=== PATIENT | male | born 1980 | race Caucasian/White ===

== ENCOUNTER 2018-10-27 10:35 | Emergency (ER) | payer OTHER ==
[~2018-10-27] VITALS: Ht 167.6 cm; Wt 74.4 kg
[~2018-10-27 10:35] MED LIST: HYDROCHLOROTHIA25 MG PO; LASIX40 MG PO; PRE20 PO; PREDNISONE20 MG PO; SIMVASTATIN10 M1 PO; ZES10 PO
[2018-10-27 10:50] VITALS: Ht 167.6 cm; Wt 74.4 kg
[2018-10-27 13:02] VITALS: BP 130/85
== END 2018-10-27 13:02 | disposition home or self-care (01) ==
LOC: ED 10:35
DX: T15.82XA Foreign body in other and multiple parts of external eye, left eye, initial encounter (principal); Y92.89 Other specified places as the place of occurrence of the external cause
CPT/HCPCS: 90715

== ENCOUNTER 2019-11-08 18:43 | Emergency (ER) | payer MEDICAID ==
[~2019-11-08] VITALS: Ht 157.5 cm; Wt 81.2 kg
[2019-11-08 18:50] VITALS: Ht 157.5 cm; Wt 81.2 kg
[2019-11-08 21:47] VITALS: BP 137/87
== END 2019-11-08 21:47 | disposition home or self-care (01) ==
LOC: ED 18:43
DX: S61.214A Laceration without foreign body of right ring finger without damage to nail, initial encounter (principal); R03.0 Elevated blood-pressure reading, without diagnosis of hypertension; W26.8XXA Contact with other sharp object(s), not elsewhere classified, initial encounter; Y93.89 Activity, other specified; Y92.89 Other specified places as the place of occurrence of the external cause; Y99.8 Other external cause status
CPT/HCPCS: 90715; A4570; J2001

== ENCOUNTER 2019-11-11 13:30 | Emergency (ER) | payer MEDICAID ==
[~2019-11-11] VITALS: Ht 157.5 cm; Wt 81.2 kg
[2019-11-11 13:47] VITALS: BP 126/80; Ht 157.5 cm; Wt 81.2 kg
== END 2019-11-11 15:18 | disposition home or self-care (01) ==
LOC: ED 13:30
DX: S61.215D Laceration without foreign body of left ring finger without damage to nail, subsequent encounter (principal); R03.0 Elevated blood-pressure reading, without diagnosis of hypertension; W26.8XXD Contact with other sharp object(s), not elsewhere classified, subsequent encounter

== ENCOUNTER 2020-04-06 16:42 | Emergency (ER) | payer SELFPAY ==
[~2020-04-06] VITALS: Ht 162.6 cm; Wt 73.9 kg
[2020-04-06 16:50] VITALS: Ht 162.6 cm; Wt 73.9 kg
[2020-04-06 17:20] LABS: BASOPHIL % 0.8 % (0-2); PLATELET COUNT 238 x10^3mcL (130-400); RED CELL DISTRIBUTION WIDTH 13.8 % (11.5-14.5)
[2020-04-06 17:46] LABS: CALCIUM 8.6 mg/dL (8.5-10.1); CARBON DIOXIDE 25.2 mmol/L (21-32); CHLORIDE SERUM 104 mmol/L (98-107); CREATININE SERUM 0.8 mg/dL (0.7-1.3); GFR1 > 60 mL/min; GLUCOSE SERUM 105 mg/dL (74-106); POTASSIUM SERUM 3.5 mmol/L (3.5-5.1); SODIUM SERUM 140 mmol/L (136-145)
[2020-04-06 17:51] LABS: ALBUMIN 3.6 g/dL (3.4-5.0); ALKALINE PHOSPHATASE 121 U/L (46-116); ALT/SGPT 67 U/L (16-63); AST/SGOT 37 U/L (15-37); BILIRUBIN TOTAL 0.62 mg/dL (0.20-1.00); TOTAL PROTEIN, SERUM 7.7 g/dL (6.4-8.2)
[2020-04-06 18:29] VITALS: BP 117/76
== END 2020-04-06 18:29 | disposition home or self-care (01) ==
LOC: ED 16:42
PROVIDERS: Emergency Medicine
DX: S20.212A Contusion of left front wall of thorax, initial encounter (principal); V49.9XXA Car occupant (driver) (passenger) injured in unspecified traffic accident, initial encounter; Y93.89 Activity, other specified; Y92.89 Other specified places as the place of occurrence of the external cause; Y99.8 Other external cause status
CPT/HCPCS: 36415; J1885; Q0092

== ENCOUNTER 2020-09-20 12:17 | Emergency (ER) | payer MEDICAID ==
[~2020-09-20] VITALS: Ht 165.1 cm; Wt 72.1 kg
[2020-09-20 12:31] VITALS: Ht 165.1 cm; Wt 72.1 kg
[2020-09-20 14:42] LABS: microscopic required? YES; urine erythrocyte TRACE (NEGATIVE)
[2020-09-20 15:04] LABS: AMPHETAMINE QUAL UR NONE DETECTED (See below)
[2020-09-20 15:06] LABS: BASOPHIL % 0.4 % (0-2); PLATELET COUNT 222 x10^3mcL (130-400); RED CELL DISTRIBUTION WIDTH 13.8 % (11.5-14.5)
[2020-09-20 15:10] LABS: CALCIUM 8.7 mg/dL (8.5-10.1); CARBON DIOXIDE 23.6 mmol/L (21-32); CHLORIDE SERUM 97 mmol/L (98-107); CREATININE SERUM 0.6 mg/dL (0.7-1.3); GFR1 > 60 mL/min; GLUCOSE SERUM 404 mg/dL (74-106); SODIUM SERUM 130 mmol/L (136-145)
[2020-09-20 15:15] LABS: ALBUMIN 3.4 g/dL (3.4-5.0); ALKALINE PHOSPHATASE 134 U/L (46-116); BILIRUBIN TOTAL 0.8 mg/dL (0.20-1.00); TOTAL PROTEIN, SERUM 7.6 g/dL (6.4-8.2)
[2020-09-20 15:24] LABS: CHOLESTEROL 331 mg/dL (<200)
[2020-09-20 15:40] LABS: ALT/SGPT 172 U/L (16-63); AST/SGOT 119 U/L (15-37)
[2020-09-20 16:33] VITALS: BP 110/76
== END 2020-09-20 16:33 | disposition home or self-care (01) ==
LOC: ED 12:17
PROVIDERS: Emergency Medicine
DX: N48.1 Balanitis (principal); E11.9 Type 2 diabetes mellitus without complications
CPT/HCPCS: 82962